=== PATIENT | male | born 1990 | race Hispanic/Latino ===

== ENCOUNTER 2025-01-21 03:53 | Emergency (ER) | payer SELFPAY ==
[~2025-01-21] VITALS: Ht 167.6 cm; Wt 90.7 kg
--- NOTE | 2025-01-21 04:08 | ERN ---
General Chief Complaint: Chest Pain Stated Complaint: CHEST PAIN Time Seen by MD: 03:58 History of Present Illness Initial Comments 34-year-old male past medical history here for evaluation of chest pain. Patient states chest pain started three hours ago. He admits to taking cocaine/relapsing after being sober for many months. Allergies: Coded Allergies: No Known Allergies (Unverified Allergy, Unknown, 01/21/25) Past Medical History Past Medical History: CHF, Diabetes-Type II, High Cholesterol, Hypertension Past Surgical History: None Cardiovascular: (+) chest pain Physical Exam General Appearance: (+) no apparent distress Orientation: (+) alert, (+) oriented x 3 Ear, Nose, Throat: (+) hearing grossly normal, (+) normal ENT inspection, (+) moist mucous membraine Neck: (+) normal inspection, (+) supple Respiratory: (+) chest non-tender, (+) lungs clear, (+) well ventilated Heart: (+) regular; (-) murmur Back: (+) normal inspection, (+) no CVA tenderness Extremities: (+) normal range of motion Results Laboratory and Microbiology Lab and Micro Result Laboratory Tests Test 01/21/25 04:10 01/21/25 04:20 White Blood Count 11.9 K/uL (4.8-10.8) H Red Blood Count 4.49 MIL/uL (4.50-6.20) L Hemoglobin 13.8 g/dL (14.0-18.0) L Hematocrit 42.8 % (42-54) Mean Corpuscular Volume 95.3 fL (79-99) Mean Corpuscular Hemoglobin 30.7 pg (27.0-33.0) Mean Corpuscular Hemoglobin Concent 32.2 g/dL (32.0-36.0) Red Cell Distribution Width 13.6 % (11.0-15.5) Platelet Count 145 K/uL (130-400) Mean Platelet Volume 12.0 fL (7.5-10.5) H Immature Granulocyte % (Auto) 0.4 % (0-1) Neutrophils (%) (Auto) 69.3 % (40.0-77.0) Lymphocytes (%) (Auto) 20.2 % (21.0-51.0) L Monocytes (%) (Auto) 9.1 % (3.0-13.0) Eosinophils (%) (Auto) 0.5 % (0.0-8.0) Basophils (%) (Auto) 0.5 % (0.0-5.0) Neutrophils # (Auto) 8.2 K/uL (1.8-7.7) H Lymphocytes # (Auto) 2.4 K/uL (1.0-4.8) Monocytes # (Auto) 1.1 K/uL (0.1-1.0) H Eosinophils # (Auto) 0.06 K/uL (0.00-0.70) Basophils # (Auto) 0.06 K/uL (0.00-0.20) Absolute Immature Granulocyte (auto 0.05 K/uL (0-1) Nucleated Red Blood Cells 0.0 % (0.0-0.19) Sodium Level 137 mmol/L (136-145) Potassium Level 4.3 mmol/L (3.5-5.1) Chloride Level 100 mmol/L (101-111) L Carbon Dioxide Level 29 mmol/L (21-32) Blood Urea Nitrogen 16 mg/dL (7-18) Creatinine 1.0 mg/dL (0.5-1.3) Glomerular Filtration Rate Calc 101 mL/min (>90) Random Glucose 116 mg/dL (70-105) H Total Calcium 8.9 mg/dL (8.5-10.1) Troponin I High Sensitivity 28 ng/L (4-75) Urine Opiates Screen NEGATIVE (NEGATIVE) Urine Barbiturates Screen NEGATIVE (NEGATIVE) Urine Phencyclidine Screen NEGATIVE (NEGATIVE) Urine Amphetamines Screen NEGATIVE (NEGATIVE) Urine Benzodiazepines Screen NEGATIVE (NEGATIVE) Urine Cocaine Screen POSITIVE (NEGATIVE) H Urine Marijuana (THC) Screen POSITIVE (NEGATIVE) H MDM Rodsow[age]sjmi[age]-old male with chest pain. Admits to taking cocaine prior to arrival. We will get cardiac workup & reassess. ED Course Orders Procedure Category Date Status Time Cbc With Differential LAB 01/21/25 Complete 03:58 Basic Metabolic Panel LAB 01/21/25 Complete 03:58 Troponin I High LAB 01/21/25 Complete Sensitivity 03:58 Drug Screen Urine LAB 01/21/25 Complete 03:58 Chest 1vw RAD 01/21/25 Resulted 03:58 12 Lead Ekg Tracing- EKG 01/21/25 Logged Technical 03:58 Lorazepam 2 Mg PHA 11/13/25 Complete (Ativan) 05:30 Diazepam 5 Mg/Ml 2 Ml PHA 01/21/25 Complete Syg (Valium 5 Mg/M 05:30 Current Medications Medications (Trade) Dose Ordered Sig/Alix Route PRN Reason Start Time Stop Time Status Last Admin Dose Admin Diazepam (VALium 5 MG/ML 2 ML SYG) 2.5 mg ONCE ONCE IVP 01/21/25 05:30 01/21/25 05:31 DC 01/21/25 05:25 Lorazepam (AtiVAN) 1 mg ONCE ONCE IVP 01/21/25 05:30 01/21/25 05:13 DC Vital Signs Date Time Temp Pulse Resp B/P (MAP) Pulse Ox O2 Delivery O2 Flow Rate FiO2 01/21/25 04:11 98.4 94 18 145/66 98 Room Air* 0 21 01/21/25 03:54 98.1 94 16 135/84 97 Room Air 0 DX & DISP Disposition: Discharge Departure Impression: Primary Impression: Chest pain Additional Impression: Cocaine abuse Condition: Stable Referrals: SELF,REFERRAL (PCP) ALCON TABARES MD Jan 21, 2025 04:07
[2025-01-21 04:17] LABS: IMMATURE GRANULOCYTE ABSOLUTE 0.05 K/uL (0-1); NUCLEATED RED BLOOD CELLS 0.0 % (0.0-0.19); PLATELET COUNT (AUTO) 145 K/uL (130-400); RED BLOOD CELL COUNT(AUTO) 4.49 MIL/uL (4.50-6.20); RED CELL DISTRIBUTION WIDTH 13.6 % (11.0-15.5); WHITE BLOOD COUNT (AUTO) 11.9 K/uL (4.8-10.8)
[2025-01-21 04:29] LABS: CREATININE 1.0 mg/dL (0.5-1.3); GLOMERULAR FILTR. RATE CALC 101.0 mL/min (>90); GLUCOSE,RANDOM 116.0 mg/dL (70-105); SODIUM SERUM 137.0 mmol/L (136-145); UREA NITROGEN, BLOOD 16.0 mg/dL (7-18)
[2025-01-21 04:37] LABS: AMPHET/METH SCREEN,URINE NEGATIVE (NEGATIVE); BARBITURATE SCREEN, URINE NEGATIVE (NEGATIVE); CANNABINOID SCREEN,URINE POSITIVE (NEGATIVE); COCAINE SCREEN,URINE POSITIVE (NEGATIVE)
--- NOTE | 2025-01-21 05:05 | HMCIMG ---
EXAM: CR Chest, 1 view CLINICAL HISTORY: Chest pain. COMPARISON: None provided. FINDINGS: Moderate enlargement of the cardiac silhouette, which could be secondary to pericardial effusion or cardiomegaly. Mild perihilar vascular congestion. No large pleural effusion or pneumothorax. No acute osseous abnormality. IMPRESSION: Moderate enlargement of the cardiac silhouette, which could be secondary to pericardial effusion or cardiomegaly. Mild perihilar vascular congestion. /[place]
--- NOTE | 2025-01-21 06:40 | NUR ---
DC PAPERS GIVEN AW PT OWN TRANSPORT
--- NOTE | 2025-01-21 06:43 | EKG ---
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
[2025-01-21 06:52] VITALS: BP 135/62; PULSE 90; RESP 18; TEMP 98.5; O2SAT 98
== END 2025-01-21 07:02 | disposition home or self-care (01) ==
LOC: EDH 03:53
DX: R07.89 Other chest pain (principal); F14.10 Cocaine abuse, uncomplicated; E11.9 Type 2 diabetes mellitus without complications; E78.00 Pure hypercholesterolemia, unspecified; I11.0 Hypertensive heart disease with heart failure; I50.9 Heart failure, unspecified
CPT/HCPCS: 99285; 96374; 71045; 84484; 80048; 80305; 85025; 36415; 93005; J3360